=== PATIENT | female | born 1990 | race Caucasian/White ===

== ENCOUNTER 2023-11-18 13:35 | Inpatient (IN) | payer OTHER ==
--- NOTE | 2023-11-18 14:22 | ED ---
General Adult HPI - General Source: patient, RN notes reviewed Mode of arrival: ambulatory Limitations: no limitations <David House - Last Filed: 11/18/23 14:21> <Eliezer Perry - Last Filed: 11/18/23 18:52> - General Chief complaint: Recheck/Abnormal Lab/Rx Stated complaint: jaundis in eyes Time Seen by Provider: 11/18/23 13:54 - History of Present Illness Initial comments: Quick [id number] female presents emerged part from [place] for evaluation of jaundice. Patient states she notices 2 weeks ago. Patient states that she drinks a large amount of white claws daily states that she has no abdo grant complaints no prior abdominal surgery such as cholecystectomy or appendectomy. Patient denies any fevers or chills no chest pain. Patient states she is starting to withdraw and having withdrawal symptoms. (David House) Dictation was produced using [employer] dictation software. please excuse any grammatical, word or spelling errors. Chief Complaint: 33-year-old female presents with jaundice History of Present Illness: Patient 33-year-old female she has noticed that her skin and eyes are yellowing. States that it has been occurring for the last 2 weeks. Patient tried to check in at [facility] today for alcohol rehab. She was evaluated and told to come to the ER for jaundice. Patient denies any other symptoms. The ROS documented in this emergency department record has been reviewed and confirmed by me. Those systems with pertinent positive or negative responses have been documented in the HPI. All other systems are other negative and/or noncontributory. (Eliezer Perry) - Related Data Home Medications Medication Instructions Recorded Confirmed FLUoxetine HCL [PROzac] 20 mg PO DAILY 11/18/23 11/18/23 Folic Acid 1 mg PO DAILY 11/18/23 11/18/23 Propranolol [Inderal] 10 mg PO TID PRN 11/18/23 11/18/23 Triamcinolone 0.1% Cream [Kenalog 1 applic TOPICAL BID PRN 11/18/23 11/18/23 0.1% Cream] hydrOXYzine pamoate [Vistaril] 25 mg PO Q6H PRN 11/18/23 11/18/23 traZODone HCL [Desyrel] 50 mg PO HS 11/18/23 11/18/23 Allergies Allergy/AdvReac Type Severity Reaction Status Date / Time amoxicillin Allergy Rash/Hives Verified 11/18/23 17:37 cephalexin [From Keflex] Allergy Rash/Hives Verified 11/18/23 17:37 Review of Systems ROS Other: All systems not noted in ROS Statement are negative. <David House - Last Filed: 11/18/23 14:21> ROS Other: All systems not noted in ROS Statement are negative. <Eliezer Perry - Last Filed: 11/18/23 18:52> ROS Statement: Those systems with pertinent positive or pertinent negative responses have been documented in the HPI. Past Medical History Past Medical History: No Reported History History of Any Multi-Drug Resistant Organisms: None Reported Past Surgical History: Section Past Psychological History: No Psychological Hx Reported Smoking Status: Vaper Past Alcohol Use History: Abuse, Daily, Heavy Past Drug Use History: None Reported <David House - Last Filed: 11/18/23 14:21> General Exam Limitations: no limitations General appearance: alert, in no apparent distress Head exam: Present: atraumatic, normocephalic, normal inspection Eye exam: Present: PERRL, EOMI, scleral icterus. Absent: normal appearance, conjunctival injection, periorbital swelling Neck exam: Present: normal inspection. Absent: tenderness, meningismus, lymphadenopathy Respiratory exam: Present: normal lung sounds bilaterally. Absent: respiratory distress, wheezes, rales, rhonchi, stridor <David House - Last Filed: 11/18/23 14:21> <Eliezer Perry - Last Filed: 11/18/23 18:52> - General Exam Comments Initial Comments: Visual Physical Exam Vital signs reviewed General: Well-appearing, nontoxic, no acute distress. Head: Normocephalic, atraumatic Eyes: PERRLA, EOMI ENT: Airway patent Chest: Nonlabored breathing Skin: No visual rash, normal skin tone Neuro: Alert and oriented 3 Musculoskeletal: No gross abnormalities (David House) PHYSICAL EXAM: General Impression: Alert and oriented x3, mild jaundice, scleral icterus HEENT: Normocephalic atraumatic, extra-ocular movements intact, pupils equal and reactive to light bilaterally, mucous membranes moist. Cardiovascular: Heart regular rate and rhythm Chest: Able to complete full sentences, no retractions, no tachypnea Abdomen: abdomen soft, non-tender, non-distended, no organomegaly Musculoskeletal: Pulses present and equal in all extremities, no peripheral edema Motor: no focal deficits noted Neurological: CN II-XII grossly intact, no focal motor or sensory deficits noted Skin: Intact with no visualized rashes Psych: Normal affect and mood (Eliezer Perry) Course Vital Signs 11/18/23 13:47 Temperature 98.1 F Pulse Rate 85 Respiratory 20 Rate Blood Pressure 124/84 O2 Sat by Pulse 99 Oximetry Medical Decision Making <David House - Last Filed: 11/18/23 14:21> - Lab Data Result diagrams: 11/18/23 15:32 11/18/23 15:32 <Eliezer Perry - Last Filed: 11/18/23 18:52> - Medical Decision Making I completed the quick note portion of this chart signed David House PA-C (David House) Was pt. sent in by a medical professional or institution ([facility], EMPLOYMENT EVALUATOR/CASE MANAGER, urgent care, hospital, or fdc...) When possible be specific @ -No Did you speak to anyone other than the patient for history (EMS, parent, family, police, friend...)? What history was obtained from this source @ -No Did you review nursing and triage notes (agree or disagree)? Why? @ -I reviewed and agree with nursing and triage notes Were old charts reviewed (outside hosp., previous admission, EMS record, old EKG, old radiological studies, urgent care reports/EKG's, fdc records)? Report findings @ -No old charts were reviewed Differential Diagnosis (chest pain, altered mental status, abdominal pain women, abdominal pain men, vaginal bleeding, musculoskeletal, weakness, fever, dyspnea, syncope, headache, dizziness, GI bleed, back pain, seizure, CVA, palpatations, mental health)? @ -Liver cancer, cirrhosis, biliary obstruction EKG interpreted by me (3pts min.). @ -None done X-rays interpreted by me (1pt min.). @ -None done CT interpreted by me (1pt min.). @ -None done U/S interpreted by me (1pt. min.). @ -Ultrasound of the liver shows steatosis of the liver What testing was considered but not performed or refused? (CT, X-rays, U/S, labs)? Why? @ -None What meds were considered but not given or refused? Why? @ -None Was smoking cessation discussed for >3mins.? @ -No Were there social determinants of health that impacted care today? How? (Homelessness, low income, unemployed, alcoholism, drug addiction, transportation, low edu. Level, literacy, decrease access to med. care, skilled nursing, rehab)? @ -Alcoholic Was there de-escalation of care discussed even if they declined (Discuss DNR or withdrawal of care, Hospice)? DNR status @ -No What co-morbidities impacted this encounter? (DM, HTN, Smoking, COPD, CAD, Cancer, CVA, ARF, Chemo, Hep., AIDS, mental health diagnosis, sleep apnea, morbid obesity)? @ -None Was patient admitted / discharged? Hospital course, mention meds given and route, prescriptions, significant lab abnormalities, going to OR and other pert inent info. @ -33-year-old female presents with new onset jaundice. Likely represents new onset cirrhosis. Vital signs stable. Patient well-appearing no abdominal pain. Laboratory evaluation obtained. Of note liver enzymes shows total bilirubin of 7.9 conjugated bilirubin 3.0 unconjugated 1.4. Urinalysis shows bilirubin. Serum alcohol is 17. Liver enzymes are 232 for AST and 43 for ALT. Case discussed with Dr. Mukherjee states that patient is appropriate for hospital admission here. Patient reevaluated 6:51 PM showing signs of alcohol withdrawal. Patient put on CIWA protocol and Ativan protocol for alcohol withdrawal. Did you discuss the management of the patient with other professionals (professionals i.e. , PA, EMPLOYMENT EVALUATOR/CASE MANAGER, lab, RT, psych nurse, social sciences department chair, kiln fireman, teacher, civil preparedness training officer, rn case mgr)? Give summary @ -See above Was critical care preformed (if so, how long)? @ -No Undiagnosed new problem with uncertain prognosis? @ -No Drug Therapy requiring intensive monitoring for toxicity (Heparin, Nitro, Insulin, Cardizem)? @ -No Were any procedures done? @ -No Diagnosis/symptom? Acute, or Chronic, or Acute on Chronic? Uncomplicated (without systemic symptoms) or Complicated (systemic symptoms)? @ -New onset jaundice, alcohol withdrawal Side effects of treatment? @ -No Exacerbation, Progression, or Severe Exacerbation? @ -No Poses a threat to life or bodily function? How? (Chest pain, [place], [place], pneumonia, PE, COPD, DKA, ARF, appy, cholecystitis, CVA, Diverticulitis, Homicidal, Suicidal, threat to staff... and all critical care pts) @ -yes (Eliezer Perry) - Lab Data Lab Results 11/18/23 11/18/23 11/18/23 Range/Units 13:53 15:32 15:32 WBC 5.2 (3.8-10.6) k/uL RBC 3.11 L (3.80-5.40) m/uL Hgb 11.4 (11.4-16.0) gm/dL Hct 33.8 L (34.0-46.0) % MCV 108.6 H (80.0-100.0) fL MCH 36.7 H (25.0-35.0) pg MCHC 33.8 (31.0-37.0) g/dL RDW 14.3 (11.5-15.5) % Plt Count 148 L (150-450) k/uL MPV 8.5 Neutrophils % 76 % Lymphocytes % 17 % Monocytes % 5 % Eosinophils % 1 % Basophils % 0 % Neutrophils # 3.9 (1.3-7.7) k/uL Lymphocytes # 0.9 L (1.0-4.8) k/uL Monocytes # 0.2 (0-1.0) k/uL Eosinophils # 0.1 (0-0.7) k/uL Basophils # 0.0 (0-0.2) k/uL Manual Slide Review Performed Macrocytosis Marked A PT 13.1 H (10.0-12.5) sec INR 1.2 H (<1.2) APTT 28.5 (22.0-30.0) sec Sodium (137-145) mmol/L Potassium (3.5-5.1) mmol/L Chloride (98-107) mmol/L Carbon Dioxide (22-30) mmol/L Anion Gap mmol/L BUN (7-17) mg/dL Creatinine (0.52-1.04) mg/dL Est GFR (CKD-EPI)AfAm (>60 ml/min/1.73 sqM) Est GFR (CKD-EPI)NonAf (>60 ml/min/1.73 sqM) Glucose (74-99) mg/dL Plasma Lactic Acid Cristian (0.7-2.0) mmol/L Calcium (8.4-10.2) mg/dL Magnesium (1.6-2.3) mg/dL Total Bilirubin (0.2-1.3) mg/dL Conjugated Bilirubin (0.0-0.3) mg/dL Unconjugated Bilirubin (0.0-1.1) mg/dL Delta Bilirubin (0.0-0.2) mg/dL AST (14-36) U/L ALT (4-34) U/L Alkaline Phosphatase (38-126) U/L Total Protein (6.3-8.2) g/dL Albumin (3.5-5.0) g/dL Lipase (23-300) U/L Urine Color Dark Yellow Urine Appearance Cloudy H (Clear) Urine pH 8.0 (5.0-8.0) Ur Specific [place] 1.014 (1.001-1.035) Urine Protein Trace H (Negative) Urine Glucose (UA) Negative (Negative) Urine Ketones Negative (Negative) Urine Blood Large H (Negative) Urine Nitrite Negative (Negative) Urine Bilirubin 2+ H (Negative) Urine Urobilinogen 8.0 (<2.0) mg/dL Ur Leukocyte Esterase Negative (Negative) Urine RBC 1 (0-5) /hpf Urine WBC 4 (0-5) /hpf Ur Squamous Epith Cells 9 H (0-4) /hpf Urine Mucus Rare H (None) /hpf Serum Alcohol mg/dL 11/18/23 11/18/23 11/18/23 Range/Units 15:32 15:32 15:36 WBC (3.8-10.6) k/uL RBC (3.80-5.40) m/uL Hgb (11.4-16.0) gm/dL Hct (34.0-46.0) % MCV (80.0-100.0) fL MCH (25.0-35.0) pg MCHC (31.0-37.0) g/dL RDW (11.5-15.5) % Plt Count (150-450) k/uL MPV Neutrophils % % Lymphocytes % % Monocytes % % Eosinophils % % Basophils % % Neutrophils # (1.3-7.7) k/uL Lymphocytes # (1.0-4.8) k/uL Monocytes # (0-1.0) k/uL Eosinophils # (0-0.7) k/uL Basophils # (0-0.2) k/uL Manual Slide Review Macrocytosis PT (10.0-12.5) sec INR (<1.2) APTT (22.0-30.0) sec Sodium 136 L (137-145) mmol/L Potassium 3.4 L (3.5-5.1) mmol/L Chloride 100 (98-107) mmol/L Carbon Dioxide 29 (22-30) mmol/L Anion Gap 7 mmol/L BUN <2 L (7-17) mg/dL Creatinine 0.34 L (0.52-1.04) mg/dL Est GFR (CKD-EPI)AfAm >90 (>60 ml/min/1.73 sqM) Est GFR (CKD-EPI)NonAf >90 (>60 ml/min/1.73 sqM) Glucose 98 (74-99) mg/dL Plasma Lactic Acid Cristian 1.7 (0.7-2.0) mmol/L Calcium 9.2 (8.4-10.2) mg/dL Magnesium 1.2 L (1.6-2.3) mg/dL Total Bilirubin 7.8 H 7.9 H (0.2-1.3) mg/dL Conjugated Bilirubin 3.0 H (0.0-0.3) mg/dL Unconjugated Bilirubin 1.4 H (0.0-1.1) mg/dL Delta Bilirubin 3.5 H (0.0-0.2) mg/dL AST 232 H (14-36) U/L ALT 43 H (4-34) U/L Alkaline Phosphatase 344 H (38-126) U/L Total Protein 6.7 (6.3-8.2) g/dL Albumin 3.5 (3.5-5.0) g/dL Lipase 205 (23-300) U/L Urine Color Urine Appearance (Clear) Urine pH (5.0-8.0) Ur Specific [place] (1.001-1.035) Urine Protein (Negative) Urine Glucose (UA) (Negative) Urine Ketones (Negative) Urine Blood (Negative) Urine Nitrite (Negative) Urine Bilirubin (Negative) Urine Urobilinogen (<2.0) mg/dL Ur Leukocyte Esterase (Negative) Urine RBC (0-5) /hpf Urine WBC (0-5) /hpf Ur Squamous Epith Cells (0-4) /hpf Urine Mucus (None) /hpf Serum Alcohol 17 mg/dL Disposition <David House - Last Filed: 11/18/23 14:21> Decision Time: 18:52 <Eliezer Perry - Last Filed: 11/18/23 18:52> Clinical Impression: Jaundice, Alcohol withdrawal Disposition: ADMITTED IP TO THIS [facility] Condition: Fair Referrals: None,Stated [REFERRING] - 1-2 days
[2023-11-18 14:24] LABS: Appearance,Urine Cloudy (Clear); Bilirubin,Urine 2+ (Negative); Blood,Urine Large (Negative); Color,Urine Dark Yellow; Glucose,Urine (UA) Negative (Negative); Ketones,Urine Negative (Negative); Leukocyte Esterase,Urine Negative (Negative); Mucus,Urine Rare /hpf; Nitrite,Urine Negative (Negative); Protein,Urine Trace (Negative); RBC,Urine 1 /hpf (0-5); Specific Gravity,Urine 1.014 (1.001-1.035); Squamous Epithelial Cell,Urine 9 /hpf (0-4); WBC,Urine 4 /hpf (0-5)
--- NOTE | 2023-11-18 15:22 | US ---
EXAMINATION TYPE: US liver DATE OF EXAM: 11/18/2023 COMPARISON: NONE CLINICAL INDICATION: Female, 33 years old with history of Jaundice; jaundice in eyes x 2 weeks. No pa in TECHNIQUE: Multiple sonographic images of the right upper quadrant are obtained. FINDINGS: EXAM MEASUREMENTS: Liver Length: 19.3 cm Gallbladder Wall: 0.29 cm CBD: 0.27 cm Right Kidney: 11.6 x 5.4 x 4.1 cm Pancreas: Suboptimal visualization of the pancreatic tail due to bowel gas shadowing. Visualized por tions within normal limits. Liver: hepatomegaly and diffusely heterogeneous and echogenic. No focal lesion seen. Gallbladder: appears wnl Evidence for sonographic Alva's sign: No CBD: wnl Right Kidney: wnl IMPRESSION: 1. Hepatomegaly at 19.3 cm with moderate to severe hepatic steatosis. Appropriate clinical management is advised. 2. No gallstones or biliary ductal dilatation.
[2023-11-18 16:05] LABS: ALT 43 U/L (4-34); AST 232 U/L (14-36); African American GFR (CKD) >90 (>60 ml/min/1.73 sqM); Albumin 3.5 g/dL (3.5-5.0); Alcohol 17 mg/dL; Alkaline Phosphatase 344 U/L (38-126); Anion Gap 7 mmol/L; Blood Urea Nitrogen <2 mg/dL (7-17); Calcium 9.2 mg/dL (8.4-10.2); Carbon Dioxide 29 mmol/L (22-30); Chloride 100 mmol/L (98-107); Glucose 98 mg/dL (74-99); Lipase 205 U/L (23-300); Magnesium 1.2 mg/dL (1.6-2.3); Non-African American GFR(CKD) >90 (>60 ml/min/1.73 sqM); Potassium 3.4 mmol/L (3.5-5.1); Sodium 136 mmol/L (137-145); Total Bilirubin 7.8 mg/dL (0.2-1.3); Total Protein 6.7 g/dL (6.3-8.2)
[2023-11-18 16:25] LABS: INR 1.2 (<1.2); Partial Thromboplastin Time 28.5 sec (22.0-30.0); Prothrombin Time 13.1 sec (10.0-12.5)
[2023-11-18 16:26] LABS: Basophils % (A) 0 %; Eosinophils # (A) 0.1 k/uL (0-0.7); Eosinophils % (A) 1 %; HCT 33.8 % (34.0-46.0); HGB 11.4 gm/dL (11.4-16.0); Lymphocytes # (A) 0.9 k/uL (1.0-4.8); Lymphocytes % (A) 17 %; MCH 36.7 pg (25.0-35.0); MCHC 33.8 g/dL (31.0-37.0); MCV 108.6 fL (80.0-100.0); Macrocytosis Marked; Mean Platelet Volume 8.5; Monocytes # (A) 0.2 k/uL (0-1.0); Monocytes % (A) 5 %; Neutrophils # (A) 3.9 k/uL (1.3-7.7); Neutrophils % (A) 76 %; Platelet Count 148 k/uL (150-450); RBC 3.11 m/uL (3.80-5.40); RDW 14.3 % (11.5-15.5); WBC 5.2 k/uL (3.8-10.6)
[2023-11-18 17:01] LABS: Bilirubin, Delta 3.5 mg/dL (0.0-0.2); Bilirubin,Unconjugated 1.4 mg/dL (0.0-1.1); Total Bilirubin 7.9 mg/dL (0.2-1.3)
[2023-11-18] MEDS ORDERED: LORazepam 2 MG/ML INJ IV PRN (18:48)
[2023-11-18] MEDS ORDERED: ACETAMINOPHEN TAB 325 MG TAB PO PRN (18:49)
[2023-11-18] MEDS ORDERED: NALOXONE 0.4 MG/ML 1 ML VIAL IV PRN (18:49)
[2023-11-18] MEDS: SODIUM CHLORIDE 0.9% 1,000 ML IV SCH (20:11)
[2023-11-18] MEDS: LORazepam 2 MG/ML INJ IV PRN (20:45)
[2023-11-18] MEDS: ONDANSETRON 4 MG/2 ML VIAL IVP PRN (20:47)
[2023-11-19] MEDS: LORazepam 2 MG/ML INJ IV PRN (10:08)
[2023-11-19 15:58] LABS: Albumin 3.3 g/dL (3.5-5.0); Albumin/Globulin Ratio 1.1; Bilirubin, Conjugated 4.3 mg/dL (0.0-0.3); Bilirubin,Unconjugated 1.7 mg/dL (0.0-1.1); Globulin 3.1 g/dL; Total Bilirubin 9.5 mg/dL (0.2-1.3); Total Protein 6.4 g/dL (6.3-8.2)
--- NOTE | 2023-11-19 19:37 | P.HPIM ---
History of Present Illness H&P Date: 11/19/23 Chief Complaint: Jaundice 33-year-old female presents to the emergency department from [place] for evaluation of jaundice. Patient states she notices 2 weeks ago. Patient states that she drinks a large amount of white claws daily states that she has no abdominal complaints no prior abdominal surgery such as cholecystectomy or appendectomy. Patient denies any fevers or chills no chest pain. Patient states she is starting to withdraw and having withdrawal symptoms. Blood work completed in ED reveals WBC of 5.2, hemoglobin of 11.4 and platelet count of 148, sodium 136, potassium 3.4, BUN/creatinine of 2/0.34 and blood glucose of 98, liver enzymes are elevated with total bilirubin of 7.9, conjugated bilirubin of 3.0 with unconjugated bilirubin of 1.4, AST/ALT elevated at 232/43 Blood alcohol level is 17 Hepatic ultrasound completed reveals hepatomegaly at 19.3 with moderate to severe hepatic steatosis Review of Systems REVIEW OF SYSTEMS: CONSTITUTIONAL: No fever, no malaise, no fatigue. HEENT: No recent visual problems or hearing problems. Denied any sore throat. CARDIOVASCULAR: No chest pain, orthopnea, PND, no palpitations, no syncope. PULMONARY: No shortness of breath, no cough, no hemoptysis. GASTROINTESTINAL: No diarrhea, no nausea, no vomiting, no abdominal pain. NEUROLOGICAL: No headaches, no weakness, no numbness. HEMATOLOGICAL: Denies any bleeding or petechiae. GENITOURINARY: Denies any burning micturition, frequency, or urgency. MUSCULOSKELETAL/RHEUMATOLOGICAL: Denies any joint pain, swelling, or any muscle pain. ENDOCRINE: Denies any polyuria or polydipsia. The rest of the 14-point review of systems is negative. Past Medical History Past Medical History: No Reported History History of Any Multi-Drug Resistant Organisms: None Reported Past Surgical History: Section Past Anesthesia/Blood Transfusion Reactions: No Reported Reaction Past Psychological History: Anxiety, Depression Smoking Status: Vaper Past Alcohol Use History: Abuse, Daily, Heavy Past Drug Use History: None Reported Medications and Allergies Home Medications Medication Instructions Recorded Confirmed Type FLUoxetine HCL [PROzac] 20 mg PO DAILY 11/18/23 11/18/23 History Folic Acid 1 mg PO DAILY 11/18/23 11/18/23 History Propranolol [Inderal] 10 mg PO TID PRN 11/18/23 11/18/23 History Triamcinolone 0.1% Cream [Kenalog 1 applic TOPICAL BID PRN 11/18/23 11/18/23 History 0.1% Cream] hydrOXYzine pamoate [Vistaril] 25 mg PO Q6H PRN 11/18/23 11/18/23 History traZODone HCL [Desyrel] 50 mg PO HS 11/18/23 11/18/23 History Allergies Allergy/AdvReac Type Severity Reaction Status Date / Time amoxicillin Allergy Rash/Hives Verified 11/18/23 17:37 cephalexin [From Keflex] Allergy Rash/Hives Verified 11/18/23 17:37 Physical Exam Vitals: Vital Signs Temp Pulse Pulse Resp BP BP Pulse Ox 11/19/23 12:55 99.0 F 93 20 111/77 99 11/19/23 07:26 98.9 F 77 18 102/69 99 11/19/23 00:43 98.6 F 82 17 100/64 99 11/18/23 21:53 98.2 F 87 17 115/79 99 11/18/23 21:14 98.1 F 77 18 97/56 98 Intake and Output 11/18/23 11/19/23 11/19/23 22:59 06:59 14:59 Other: Voiding Method Toilet Toilet Weight 52.163 kg General Impression: Alert and oriented x3, mild jaundice, scleral icterus HEENT: Normocephalic atraumatic, extra-ocular movements intact, pupils equal and reactive to light bilaterally, mucous membranes moist. Cardiovascular: Heart regular rate and rhythm Chest: Able to complete full sentences, no retractions, no tachypnea Abdomen: abdomen soft, non-tender, non-distended, no organomegaly Musculoskeletal: Pulses present and equal in all extremities, no peripheral edema Motor: no focal deficits noted Neurological: CN II-XII grossly intact, no focal motor or sensory deficits noted Skin: Intact with no visualized rashes Psych: Normal affect and mood Results CBC & Chem 7: 11/18/23 15:32 11/18/23 15:32 Labs: Abnormal Lab Results - Last 24 Hours (Table) 11/18/23 11/18/23 11/18/23 Range/Units 13:53 15:32 15:32 RBC 3.11 L (3.80-5.40) m/uL Hct 33.8 L (34.0-46.0) % MCV 108.6 H (80.0-100.0) fL MCH 36.7 H (25.0-35.0) pg Plt Count 148 L (150-450) k/uL Lymphocytes # 0.9 L (1.0-4.8) k/uL Macrocytosis Marked A PT 13.1 H (10.0-12.5) sec INR 1.2 H (<1.2) Sodium (137-145) mmol/L Potassium (3.5-5.1) mmol/L BUN (7-17) mg/dL Creatinine (0.52-1.04) mg/dL Magnesium (1.6-2.3) mg/dL Total Bilirubin (0.2-1.3) mg/dL Conjugated Bilirubin (0.0-0.3) mg/dL Unconjugated Bilirubin (0.0-1.1) mg/dL Delta Bilirubin (0.0-0.2) mg/dL AST (14-36) U/L ALT (4-34) U/L Alkaline Phosphatase (38-126) U/L Urine Appearance Cloudy H (Clear) Urine Protein Trace H (Negative) Urine Blood Large H (Negative) Urine Bilirubin 2+ H (Negative) Ur Squamous Epith Cells 9 H (0-4) /hpf Urine Mucus Rare H (None) /hpf 11/18/23 11/18/23 Range/Units 15:32 15:36 RBC (3.80-5.40) m/uL Hct (34.0-46.0) % MCV (80.0-100.0) fL MCH (25.0-35.0) pg Plt Count (150-450) k/uL Lymphocytes # (1.0-4.8) k/uL Macrocytosis PT (10.0-12.5) sec INR (<1.2) Sodium 136 L (137-145) mmol/L Potassium 3.4 L (3.5-5.1) mmol/L BUN <2 L (7-17) mg/dL Creatinine 0.34 L (0.52-1.04) mg/dL Magnesium 1.2 L (1.6-2.3) mg/dL Total Bilirubin 7.8 H 7.9 H (0.2-1.3) mg/dL Conjugated Bilirubin 3.0 H (0.0-0.3) mg/dL Unconjugated Bilirubin 1.4 H (0.0-1.1) mg/dL Delta Bilirubin 3.5 H (0.0-0.2) mg/dL AST 232 H (14-36) U/L ALT 43 H (4-34) U/L Alkaline Phosphatase 344 H (38-126) U/L Urine Appearance (Clear) Urine Protein (Negative) Urine Blood (Negative) Urine Bilirubin (Negative) Ur Squamous Epith Cells (0-4) /hpf Urine Mucus (None) /hpf Thrombosis Risk Factor Assmnt - Choose All That Apply Any of the Below Risk Factors Present?: No Other Risk Factors: No Other congenital or acquired thrombophilia - If yes, enter type in comment: No Thrombosis Risk Factor Assessment Level: Very Low Risk Assessment and Plan Assessment: 1. Alcohol intoxication impending withdrawal -Start patient on IV fluids in form of normal saline at rate of 125 cc an hour -Patient has been placed on CIWA protocol with IV Ativan -Add thiamine and folic acid -Seizure precautions 2. Jaundice; liver cirrhosis/severe hepatic steatosis versus biliary obstruction -Hepatic ultrasound revealed severe hepatic steatosis; we will order repeat liver enzymes with plans to obtain MRCP if liver enzymes continue to trend up and bilirubin is worsening 3. Transaminitis; likely related to EtOH abuse -- Will order acute hepatitis profile 4. Electrolyte imbalance; hyponatremia/hypokalemia; supplemented in ED; continu e IV fluids as indicated above; monitor electrolytes closely 5. Thrombocytopenia; related to chronic alcohol use; will monitor CBC 6. Depression; patient takes Prozac 40 mg daily; trazodone 50 mg nightly DVT prophylaxis; SCDs only given thrombocytopenia CODE STATUS; full code
[2023-11-19] MEDS: traZODone HCL 50 MG TAB PO SCH (20:47)
[2023-11-19] MEDS: SODIUM CHLORIDE 0.9% 1,000 ML with MVI, ADULT NO.4 WITH VIT K 10 ML, THIAMINE 100 MG, F... IV ONE (21:47)
[2023-11-20 05:01] LABS: Hepatitis A Antibody IgM Nonreactive (Nonreactive); Hepatitis B Core IgM Nonreactive (Nonreactive); Hepatitis B Surface Antigen Nonreactive (Nonreactive); Hepatitis C IgG Antibody Nonreactive (Nonreactive)
[2023-11-20] MEDS: hydrOXYzine pamoate 25 MG CAP PO PRN (05:18)
[2023-11-20] MEDS: FLUoxetine HCL 20 MG CAP PO SCH (08:12)
[2023-11-20 10:38] LABS: Basophils # (A) 0.02 X 10*3/uL (0.00-0.10); Basophils % (A) 0.3 %; Eosinophils # (A) 0.09 X 10*3/uL (0.04-0.35); Eosinophils % (A) 1.4 %; HCT 30.4 % (37.2-46.3); HGB 10.3 g/dL (12.0-15.0); Lymphocytes # (A) 1.45 X 10*3/uL (0.90-5.00); Lymphocytes % (A) 22.8 %; MCH 36.5 pg (27.0-32.0); MCHC 33.9 g/dL (32.0-37.0); MCV 107.8 FL (80.0-97.0); Macrocytosis (M) 2+; Mean Platelet Volume 11.8 FL (9.5-12.2); Monocytes % (A) 6.3 %; NRBC Per 100 WBC 0 X 10*3/uL (0.00-0.01); Neutrophils # (A) 4.37 X 10*3/uL (1.80-7.70); Neutrophils % (A) 68.7 %; Platelet Count 106 X 10*3/uL (140-440); RBC 2.82 X 10*6/uL (4.10-5.20); RDW 13.4 % (11.5-14.5); WBC 6.36 X 10*3/uL (4.50-10.00)
[2023-11-20 10:49] LABS: ALT 28 U/L (8-44); AST 123 U/L (13-35); Albumin 3.3 g/dL (3.8-4.9); Albumin/Globulin Ratio 1.32 Ratio (1.60-3.17); Alkaline Phosphatase 319 U/L (41-126); BUN/Creat Ratio 8.75 Ratio (12.00-20.00); Bilirubin, Conjugated 7.21 mg/dL (0.20-0.40); Bilirubin,Unconjugated 1.59 mg/dL (0.20-1.00); Blood Urea Nitrogen 3.5 mg/dL (9.0-27.0); Calcium 8.6 mg/dL (8.7-10.3); Carbon Dioxide 24.4 mmol/L (21.6-31.8); Chloride 103 mmol/L (96-109); Globulin 2.5 g/dL (1.6-3.3); Glucose 89 mg/dL (70-110); Potassium 3.3 mmol/L (3.5-5.5); Sodium 138 mmol/L (135-145); Total Bilirubin 8.8 mg/dL (0.3-1.2); Total Protein 5.8 g/dL (6.2-8.2)
--- NOTE | 2023-11-20 15:47 | P.PN ---
Subjective Progress Note Date: 11/20/23 33-year-old female presents to the emergency department from [place] for evaluation of jaundice. Patient states she notices 2 weeks ago. Patient states that she drinks a large amount of white claws daily states that she has no abdominal complaints no prior abdominal surgery such as cholecystectomy or appendectomy. Patient denies any fevers or chills no chest pain. Patient states she is starting to withdraw and having withdrawal symptoms. Blood work completed in ED reveals WBC of 5.2, hemoglobin of 11.4 and platelet count of 148, sodium 136, potassium 3.4, BUN/creatinine of 2/0.34 and blood glucose of 98, liver enzymes are elevated with total bilirubin of 7.9, conjugated bilirubin of 3.0 with unconjugated bilirubin of 1.4, AST/ALT elevated at 232/43 Blood alcohol level is 17 Hepatic ultrasound completed reveals hepatomegaly at 19.3 with moderate to severe hepatic steatosis Objective - Vital Signs Vital signs: Vital Signs Temp 98.8 F 11/20/23 07:24 Pulse 82 11/20/23 07:24 Resp 17 11/20/23 07:24 BP 95/64 11/20/23 07:24 Pulse Ox 98 11/20/23 07:24 FiO2 Intake & Output 11/19/23 11/20/23 11/20/23 18:59 06:59 18:59 Intake Total 1620 Balance 1620 Intake: Oral 1620 Other: Voiding Method Toilet Toilet # Voids 1 - Exam General Impression: Alert and oriented x3, mild jaundice, scleral icterus HEENT: Normocephalic atraumatic, extra-ocular movements intact, pupils equal and reactive to light bilaterally, mucous membranes moist. Cardiovascular: Heart regular rate and rhythm Chest: Able to complete full sentences, no retractions, no tachypnea Abdomen: abdomen soft, non-tender, non-distended, no organomegaly Musculoskeletal: Pulses present and equal in all extremities, no peripheral edema Motor: no focal deficits noted Neurological: CN II-XII grossly intact, no focal motor or sensory deficits noted Skin: Intact with no visualized rashes Psych: Normal affect and mood - Labs CBC & Chem 7: 11/20/23 05:05 11/20/23 05:05 Labs: Abnormal Lab Results - Last 24 Hours (Table) 11/19/23 11/20/23 11/20/23 Range/Units 15:05 05:05 05:05 RBC 2.82 L (4.10-5.20) X 10*6/uL Hgb 10.3 L (12.0-15.0) g/dL Hct 30.4 L (37.2-46.3) % MCV 107.8 H (80.0-97.0) FL MCH 36.5 H (27.0-32.0) pg Plt Count 106 L (140-440) X 10*3/uL Macrocytosis (manual) 2+ A Potassium 3.3 L (3.5-5.5) mmol/L BUN 3.5 L (9.0-27.0) mg/dL Creatinine 0.4 L (0.6-1.5) mg/dL BUN/Creatinine Ratio 8.75 L (12.00-20.00) Ratio Calcium 8.6 L (8.7-10.3) mg/dL Total Bilirubin 9.5 H 8.8 H (0.2-1.3) mg/dL Conjugated Bilirubin 4.3 H 7.21 H (0.0-0.3) mg/dL Unconjugated Bilirubin 1.7 H 1.59 H (0.0-1.1) mg/dL AST 176 H 123 H (14-36) U/L Alkaline Phosphatase 302 H 319 H (38-126) U/L Total Protein 5.8 L (6.2-8.2) g/dL Albumin 3.3 L 3.3 L (3.5-5.0) g/dL Albumin/Globulin Ratio 1.32 L (1.60-3.17) Ratio Assessment and Plan Assessment: 1. Alcohol intoxication impending withdrawal -Start patient on IV fluids in form of normal saline at rate of 125 cc an hour -Patient has been placed on CIWA protocol with IV Ativan -Add thiamine and folic acid -Seizure precautions 2. Jaundice; liver cirrhosis/severe hepatic steatosis versus biliary obstruction -Hepatic ultrasound revealed severe hepatic steatosis; we will order repeat liver enzymes with plans to obtain MRCP if liver enzymes continue to trend up a nd bilirubin is worsening 3. Transaminitis; likely related to EtOH abuse -- Will order acute hepatitis profile 4. Electrolyte imbalance; hyponatremia/hypokalemia; supplemented in ED; continue IV fluids as indicated above; monitor electrolytes closely 5. Thrombocytopenia; related to chronic alcohol use; will monitor CBC 6. Depression; patient takes Prozac 40 mg daily; trazodone 50 mg nightly DVT prophylaxis; SCDs only given thrombocytopenia CODE STATUS; full code
--- NOTE | 2023-11-20 15:50 | MR ---
EXAMINATION TYPE: MR liver wo/w con and mrcp DATE OF EXAM: 11/20/2023 12:43 PM CLINICAL INDICATION: Female, 33 years old with history of Jaundice; PHH, jaundice, etoh withdraw. COMPARISON: Ultrasound 11/18/2023 TECHNIQUE MRI ABDOMEN WITH CONTRAST: Multiplanar multi-sequence imaging was performed without and wit h IV contrast/gadolinium. The patient was given 5 cc Gadavist gadolinium intravenously and dynamic p ost-VIBE (volumetric interpolated breath-hold gradient recall echo) imaging was performed. IV Contrast: 5 cc Gadavist TECHNIQUE MRCP ABDOMEN WITHOUT CONTRAST: Multi planar, T2-weighted imaging with and without fat satur ation and chemical shift imaging was performed of the abdomen. Then, heavily T2 weighted imaging (eloisa f-Fourier acquisition single-shot turbo spin-echo) was utilized in order to study the biliary system. Maximum intensity projection images were reconstructed from the original data of the biliary tree. 3D reconstructions and MIP imaging performed on a separate workstation. FINDINGS: MRCP: * The intrahepatic ducts have a normal appearance. * The extrahepatic ducts have a normal appearance. * The common hepatic duct measures 3 mm in size. * The common bile duct at the level of the pancreatic head measures 3 mm in size. * The pancreatic duct is normal. * The gallbladder appears appears to have thickened chambers with hyperemia of the mucosa. Abdomen: Liver: No evidence for cirrhosis. Signal dropout on chemical shift out of phase imaging. Enlarged darrell suring up to 22 mm in caudocranial dimension. Pancreas: No ductal dilation. No evidence for solid mass. Spleen: Normal for size. Adrenal glands: Unremarkable. Kidneys: No evidence for obstructive uropathy. No suspicious renal masses. Stomach and Bowel: No evidence for bowel wall thickening or evidence for obstruction. Retroperitoneum/Peritoneum: No evidence of pneumoperitoneum or free fluid. Vasculature: No aortic aneurysm. Musculoskeletal: The osseous structures appear intact. Lymph Nodes: No gross evidence for lymphadenopathy. Abdominal wall: Fat-containing umbilical hernia. IMPRESSION: 1. Gallbladder wall thickening with hyperemia. However the gallbladder is not all that distended. Fi ndings not well appreciated on ultrasound. Correlate for cholecystitis. 2. No evidence to suggest ductal stricture, choledocholithiasis, or biliary ductal dilatation. No ch olelithiasis visualized. 3. Severe hepatic steatosis with hepatomegaly.
[2023-11-21 08:22] VITALS: RESP 16
[2023-11-21 10:43] LABS: Basophils # (A) 0.04 X 10*3/uL (0.00-0.10); Basophils % (A) 0.5 %; Eosinophils # (A) 0.09 X 10*3/uL (0.04-0.35); Eosinophils % (A) 1.2 %; HCT 30.7 % (37.2-46.3); HGB 10.4 g/dL (12.0-15.0); Lymphocytes # (A) 1.42 X 10*3/uL (0.90-5.00); Lymphocytes % (A) 19.3 %; MCH 36.5 pg (27.0-32.0); MCHC 33.9 g/dL (32.0-37.0); MCV 107.7 FL (80.0-97.0); Mean Platelet Volume 10.9 FL (9.5-12.2); Monocytes # (A) 0.47 X 10*3/uL (0.20-1.00); Monocytes % (A) 6.4 %; NRBC Per 100 WBC 0 X 10*3/uL (0.00-0.01); Neutrophils % (A) 71.9 %; Platelet Count 105 X 10*3/uL (140-440); RBC 2.85 X 10*6/uL (4.10-5.20); RDW 13.3 % (11.5-14.5); WBC 7.37 X 10*3/uL (4.50-10.00)
[2023-11-21 12:27] LABS: ALT 23 U/L (8-44); AST 105 U/L (13-35); Albumin 3.4 g/dL (3.8-4.9); Albumin/Globulin Ratio 1.42 Ratio (1.60-3.17); Alkaline Phosphatase 289 U/L (41-126); BUN/Creat Ratio <7.00 Ratio (12.00-20.00); Blood Urea Nitrogen <3.5 mg/dL (9.0-27.0); Calcium 8.4 mg/dL (8.7-10.3); Carbon Dioxide 23.5 mmol/L (21.6-31.8); Chloride 104 mmol/L (96-109); Globulin 2.4 g/dL (1.6-3.3); Glucose 96 mg/dL (70-110); Potassium 3.5 mmol/L (3.5-5.5); Sodium 138 mmol/L (135-145); Total Bilirubin 10.6 mg/dL (0.3-1.2); Total Protein 5.8 g/dL (6.2-8.2)
--- NOTE | 2023-11-21 18:07 | P.PN ---
Subjective Progress Note Date: 11/21/23 33-year-old female presents to the emergency department from [place] for evaluation of jaundice. Patient states she notices 2 weeks ago. Patient states that she drinks a large amount of white claws daily states that she has no abdominal complaints no prior abdominal surgery such as cholecystectomy or appendectomy. Patient denies any fevers or chills no chest pain. Patient states she is starting to withdraw and having withdrawal symptoms. Blood work completed in ED reveals WBC of 5.2, hemoglobin of 11.4 and platelet count of 148, sodium 136, potassium 3.4, BUN/creatinine of 2/0.34 and blood glucose of 98, liver enzymes are elevated with total bilirubin of 7.9, conjugated bilirubin of 3.0 with unconjugated bilirubin of 1.4, AST/ALT elevated at 232/43 Blood alcohol level is 17 Hepatic ultrasound completed reveals hepatomegaly at 19.3 with moderate to severe hepatic steatosis 11/21/2023 Seen and evaluated resting comfortably in bed; continues to have yellowish discoloration of skin and sclera; denies any pain Vital signs are reviewed and remained stable Lab review shows WBC of 7.37, hemoglobin 10.4 and platelet count of 105, sodium 138, potassium five 3.5, BUNs/creatinine 3.5/0.5 Liver enzymes are being trended total bilirubin starting to trend down and was 8.8 yesterday up to 10.6, AST/ALT continuing to trend down MRCP completed and reveals gallbladder wall thickening with hyperemia; correlate for cholecystitis; no evidence to suggest ductal stricture, choledocholithiasis or biliary ductal dilatation; severe hepatic steatosis with hepatomegaly -Bilirubin continues to trend up, transaminases are starting to trend down; we will consult general surgery to evaluate for possible cholecystitis Objective - Vital Signs Vital signs: Vital Signs Temp 98.1 F 11/21/23 07:32 Pulse 78 11/21/23 08:35 Resp 16 11/21/23 08:35 BP 93/59 11/21/23 07:32 Pulse Ox 96 11/21/23 07:32 FiO2 Intake & Output 11/20/23 11/21/23 11/21/23 18:59 06:59 18:59 Intake Total 1080 Balance 1080 Intake: Oral 1080 Other: Voiding Method Toilet Toilet - Exam General Impression: Alert and oriented x3, mild jaundice, scleral icterus HEENT: Normocephalic atraumatic, extra-ocular movements intact, pupils equal and reactive to light bilaterally, mucous membranes moist. Cardiovascular: Heart regular rate and rhythm Chest: Able to complete full sentences, no retractions, no tachypnea Abdomen: abdomen soft, non-tender, non-distended, no organomegaly Musculoskeletal: Pulses present and equal in all extremities, no peripheral edema Motor: no focal deficits noted Neurological: CN II-XII grossly intact, no focal motor or sensory deficits noted Skin: Intact with no visualized rashes Psych: Normal affect and mood - Labs CBC & Chem 7: 11/21/23 04:44 11/21/23 04:44 Labs: Abnormal Lab Results - Last 24 Hours (Table) 11/21/23 Range/Units 04:44 RBC 2.85 L (4.10-5.20) X 10*6/uL Hgb 10.4 L (12.0-15.0) g/dL Hct 30.7 L (37.2-46.3) % MCV 107.7 H (80.0-97.0) FL MCH 36.5 H (27.0-32.0) pg Plt Count 105 L (140-440) X 10*3/uL Immature Gran # 0.05 H (0.00-0.04) X 10*3/uL Assessment and Plan Assessment: 1. Alcohol intoxication impending withdrawal -Start patient on IV fluids in form of normal saline at rate of 125 cc an hour -Patient has been placed on CIWA protocol with IV Ativan -Add thiamine and folic acid -Seizure precautions 2. Jaundice; liver cirrhosis/severe hepatic steatosis versus biliary obstruction -Hepatic ultrasound revealed severe hepatic steatosis; we will order repeat liver enzymes with plans to obtain MRCP if liver enzymes continue to trend up and bilirubin is worsening 3. Transaminitis; likely related to EtOH abuse -- Will order acute hepatitis profile 4. Electrolyte imbalance; hyponatremia/hypokalemia; supplemented in ED; continue IV fluids as indicated above; monitor electrolytes closely 5. Thrombocytopenia; related to chronic alcohol use; will monitor CBC 6. Depression; patient takes Prozac 40 mg daily; trazodone 50 mg nightly DVT prophylaxis; SCDs only given thrombocytopenia CODE STATUS; full code
[2023-11-21 19:45] VITALS: BP 107/74; PULSE 89; TEMP 98.2
[2023-11-21] MEDS ORDERED: THIAMINE 100 MG TAB PO SCH (21:00)
[2023-11-21] MEDS ORDERED: FOLIC ACID 1 MG TAB PO SCH (21:00)
== END 2023-11-21 19:55 | disposition home or self-care (01) | DRG 775 ==
LOC: EC 13:35 → 5NMEDONC 18:49
PROVIDERS: ADMIT Internal Medicine; ATTEND Internal Medicine
DX: F10.129 Alcohol abuse with intoxication, unspecified (principal); F10.139 Alcohol abuse with withdrawal, unspecified; E87.1 Hypo-osmolality and hyponatremia; D69.59 Other secondary thrombocytopenia; E87.6 Hypokalemia; F32.A Depression, unspecified; F41.9 Anxiety disorder, unspecified; K76.0 Fatty (change of) liver, not elsewhere classified; Y90.0 Blood alcohol level of less than 20 mg/100 ml; Z79.899 Other long term (current) drug therapy; K74.60 Unspecified cirrhosis of liver; Z79.84 Long term (current) use of oral hypoglycemic drugs; Z88.1 Allergy status to other antibiotic agents; Z88.0 Allergy status to penicillin; Z28.21 Immunization not carried out because of patient refusal
CPT/HCPCS: 36415; 74183; 76705; 80048; 80053; 80074; 80076; 80320; 81001; 82248; 83605; 83690; 83735; 85025; 85610; 85730; 96361; 96374; 96375; 99285